=== PATIENT | male | born 1955 | race Caucasian/White ===

== ENCOUNTER 2020-08-08 16:24 | Emergency (ER) | payer MEDICARE ==
[~2020-08-08] VITALS: Ht 185.5 cm; Wt 86.2 kg
--- NOTE | 2020-08-08 18:12 | Diagnostic Imaging Report ---
INDICATION: Shortness of breath. FINDINGS: There are background features of underlying chronic interstitial lung disease with flattened diaphragms suggesting air trapping and underlying COPD. There also are superimposed alveolar opacities present at the right lung base suspect for superimposed pneumonia. There is no significant effusion. There is no pneumothorax. Heart size is appropriate and pulmonary vascularity appears appropriate. IMPRESSION: Apparent advanced background features of interstitial lung disease and COPD with superimposed alveolar opacities at the right base suggesting pneumonia. Dictated by: Dictated on workstation # [id number]
[2020-08-08 18:17] LABS: BASOPHILS % (AUTO) 1 % (0-10); EOSINOPHILS % (AUTO) 3 % (0-10); HEMATOCRIT 48 % (40-54); HEMOGLOBIN 16.5 G/DL (13.3-17.7); LYMPHOCYTES % (AUTO) 39 % (12-44); MEAN CORPUSCULAR HEMOGLOBIN 31 PG (25-34); MEAN CORPUSCULAR HGB CONC 35 G/DL (32-36); MEAN CORPUSCULAR VOLUME 90 FL (80-99); MEAN PLATELET VOLUME 11.5 FL (7.4-10.4); MONOCYTES % (AUTO) 0 % (0-12); NEUTROPHILS % (AUTO) 55 % (42-75); PLATELET COUNT 78 10^3/uL (130-400); WHITE BLOOD COUNT 2.4 10^3/uL (4.3-11.0)
[2020-08-08 18:18] LABS: EOSINOPHILS # (AUTO) 0.1 10^3/uL (0.0-0.3); LYMPHOCYTES # (AUTO) 0.9 X 10^3 (1.0-4.0); NEUTROPHILS # (AUTO) 1.3 X 10^3 (1.8-7.8)
[2020-08-08 18:19] LABS: BAND NEUTROPHILS 1 %; BASOPHILS % (MANUAL) 0 %; EOSINOPHILS % (MANUAL) 1 %; HYPERSEGMENTED NEUT MODERATE; LYMPHOCYTES % (MANUAL) 40 %; MONOCYTES % (MANUAL) 1 %; NEUTROPHILS % (MANUAL) 52 %
[2020-08-08 18:20] LABS: ATYPICAL LYMPHOCYTES 5 %; PLATELET ESTIMATE DECREASED; RBC MORPH NORMAL
[2020-08-08 18:21] LABS: BUN/CREATININE RATIO 16; CARBON DIOXIDE 25 MMOL/L (21-32); CHLORIDE 99 MMOL/L (98-107); CREATININE SERUM 0.97 MG/DL (0.60-1.30); GFR ESTIMATED > 60; GLUCOSE 125 MG/DL (70-105); POTASSIUM 3.8 MMOL/L (3.6-5.0); SODIUM 138 MMOL/L (135-145)
[2020-08-08 18:22] LABS: ALANINE AMINOTRANSFERASE 50 U/L (0-55); ALBUMIN 3.5 GM/DL (3.2-4.5); ALKALINE PHOSPHATASE 239 U/L (40-136); BILIRUBIN,TOTAL 1.2 MG/DL (0.1-1.0); CALCIUM 9.9 MG/DL (8.5-10.1); TOTAL PROTEIN 7.9 GM/DL (6.4-8.2)
[2020-08-08] MEDS ORDERED: oxyCODONE/APAP 5/325MG (PERCOCET 5) TABLET ONE (18:39)
[2020-08-08] MEDS ORDERED: oxyCODONE/APAP 10/325MG (PERCOCET 10) TABLET PO ONE (18:45)
[2020-08-08] MEDS ORDERED: oxyCODONE/APAP 5/325MG (PERCOCET 5) TABLET PO ONE (18:45)
[2020-08-08 19:41] VITALS: BP 143/71
== END 2020-08-08 19:41 | disposition home or self-care (01) ==
LOC: EDUNIT# 16:24 → ER FS 16:27
DX: R06.02 Shortness of breath (principal)
CPT/HCPCS: 36415; 71045; 80053; 84484; 85007; 85027